=== PATIENT | female | born 1955 | race African-American/Black ===

== ENCOUNTER 2022-08-11 12:57 | Emergency (ER) | payer MEDICAID ==
[~2022-08-11] VITALS: Ht 170.2 cm; Wt 77.0 kg
[2022-08-11] MEDS ORDERED: ACETAMINOPHEN 325MG TABLET PO STA (14:12)
[2022-08-11 14:57] LABS: BASOPHILS % 0.5 % (0.0-2.0); EOSINOPHILS % 3.4 % (0.0-5.0); HEMATOCRIT. 39.7 % (36.0-48.0); LYMPHOCYTES % 46.3 % (20.0-50.0); MEAN CORPUSCULAR HEMOGLOBIN 32.1 pg (28.0-32.0); MEAN CORPUSCULAR VOLUME 90.8 fL (81.0-99.0); MEAN PLATELET VOLUME 8.1 fl (7.4-10.4); MONOCYTES % 6.2 % (2.0-8.0); NEUTROPHILS % 43.6 % (40.0-76.0); PLATELET 234 x1000/uL (130-400); RED BLOOD CELL COUNT 4.37 mill/uL (4.2-5.4); RED CELL DISTRIBUTION WIDTH 12.6 % (11.6-14.6)
[2022-08-11 15:05] LABS: PROTHROMBIN TIME 10.7 sec (9.6-11.0)
[2022-08-11 15:08] LABS: CHLORIDE 104 mEq/L (98-107)
[2022-08-11] MEDS ORDERED: ACETAMINOPHEN 325MG TABLET PO NR (16:15)
[2022-08-11] MEDS ORDERED: ONDA4TAB50 MT (16:16)
[2022-08-11] MEDS ORDERED: ACET-2708 MT (16:16)
[2022-08-11 16:37] VITALS: BP 105/65
[2022-08-11 16:51] LABS: CLARITY URINE CLEAR (CLEAR); COLOR URINE YELLOW (YELLOW); KETONES URINE NEGATIVE (NEGATIVE); LEUKOCYTE ESTERASE URINE 2+ (NEGATIVE); NITRITE URINE NEGATIVE (NEGATIVE); OCCULT BLOOD URINE NEGATIVE (NEGATIVE); PH URINE 6.5 (4.5-8.0); PROTEIN URINE NEGATIVE (NEGATIVE); SPECIFIC GRAVITY URINE 1.021 (1.005-1.030)
== END 2022-08-11 17:15 | disposition home or self-care (01) ==
LOC: ER 12:57
DX: R10.32 Left lower quadrant pain (principal); E78.00 Pure hypercholesterolemia, unspecified; Z98.51 Tubal ligation status; Z13.9 Encounter for screening, unspecified
CPT/HCPCS: 29130; 36415; 73030; 74176; 80053; 81003; 85025; 99285